=== PATIENT | female | born 1990 | race American Indian/Alaskan Native ===

== ENCOUNTER 2016-12-12 13:29 | Emergency (ER) | payer MEDICAID ==
[2016-12-12 13:56] VITALS: BP 112/74; PULSE 78; RESP 16; TEMP 98.2; O2SAT 99; BMI 37.5
--- NOTE | 2016-12-12 13:56 | C.PDOC ---
History Of Present Illness 25 yr old female presents to the ER for staple removal. Adiel were put in place November 03. Denies fever, vision changes, nausea, vomiting, headache, dizziness, weakness or numbness. Time Seen by Provider: 12/12/16 13:50 Chief Complaint (Nursing): Suture/Staple Removal History Per: Patient History/Exam Limitations: no limitations Onset/Duration Of Symptoms: Days Ago Past Medical History Reviewed: Historical Data, Nursing Documentation, Vital Signs Vital Signs: Last Vital Signs Temp 98.2 F 12/12/16 13:44 Pulse 78 12/12/16 13:44 Resp 16 12/12/16 13:44 BP 112/74 12/12/16 13:44 Pulse Ox 99 12/12/16 13:57 Family History: States: No Known Family Hx - Social History Hx Alcohol Use: Yes Hx Substance Use: No - Immunization History Hx Tetanus Toxoid Vaccination: No Hx Influenza Vaccination: No Hx Pneumococcal Vaccination: No Review Of Systems Except As Marked, All Systems Reviewed And Found Negative. Constitutional: Negative for: Fever Eyes: Negative for: Vision Change Gastrointestinal: Negative for: Nausea, Vomiting Neurological: Negative for: Weakness, Numbness, Headache, Dizziness Physical Exam - Physical Exam Appears: Non-toxic, No Acute Distress Skin: Warm, Dry, No Rash Head: Atraumatic, Normacephalic, No Swelling, No Abrasion, Other ((+) [address] No signs of infections or drainage. ) Eye(s): bilateral: Normal Inspection, PERRL, EOMI Oral Mucosa: Moist Extremity: Normal ROM, No Swelling Neurological/Psych: Oriented x3, Normal Speech, Normal Motor ED Course And Treatment O2 Sat by Pulse Oximetry: 99 Medical Decision Making Medical Decision Making: PROCEDURE NOTE: 2 adiel were removed. Patient tolerated the procedure well. No signs of infections. Disposition - Disposition Referrals: [facility] Gerry De Dios, [Non-Staff] - Disposition: HOME/ ROUTINE Disposition Time: 13:50 Condition: GOOD Additional Instructions: Thank you for letting us take care of you today. Your provider was Dr. Daley. You were treated for staple removal. The emergency medical care you received today was directed at your acute symptoms. If you were prescribed any medication, please fill it and take as directed. It may take several days for your symptoms to resolve. Return to the Emergency Department if your symptoms worsen, do not improve, or if you have any other problems. Please contact your doctor or call one of the physicians/clinics you have been referred to that are listed on the Patient Visit Information form that is included in your discharge packet. Bring any paperwork you were given at discharge with you along with any medications you are taking to your follow up visit. Our treatment cannot replace ongoing medical care by a primary care provider (PCP) outside of the emergency department. Thank you for allowing the [facility] team to be part of your care today. Follow up with your doctor as needed. - Clinical Impression Clinical Impression: Removal of adiel - Scribe Statement The provider has reviewed the documentation as recorded by the Alyssiaibe Katrin Sandoval Provider Attestation: All medical record entries made by the Marguerite were at my direction and personally dictated by me. I have reviewed the chart and agree that the record accurately reflects my personal performance of the history, physical exam, medical decision making, and the department course for this patient. I have also personally directed, reviewed, and agree with the discharge instructions and disposition.
== END 2016-12-12 13:58 | disposition home or self-care (01) ==
LOC: C.ER 13:29
DX: Z48.02 Encounter for removal of sutures (principal)